=== PATIENT | male | born 1950 | race Caucasian/White ===

== ENCOUNTER 2018-03-19 21:00 | Outpatient (CLI) | payer MEDICARE | END 2018-03-19 21:01 | disposition short-term general hospital (02) | LOC: EMS 21:00 | PROVIDERS: ATTEND Surgery | DX: R09.89 Other specified symptoms and signs involving the circulatory and respiratory systems (principal) | CPT/HCPCS: A0425; A0429 ==

== ENCOUNTER 2022-08-31 03:29 | Outpatient (CLI) | payer MEDICARE | END 2022-08-31 23:59 | disposition short-term general hospital (02) | LOC: EMS 03:29 | DX: I49.9 Cardiac arrhythmia, unspecified (principal); Z95.810 Presence of automatic (implantable) cardiac defibrillator | CPT/HCPCS: A0425; A0429 ==

== ENCOUNTER 2022-10-28 17:52 | Outpatient (CLI) | payer MEDICARE | END 2022-10-28 17:53 | disposition short-term general hospital (02) | LOC: EMS 17:52 | DX: R00.0 Tachycardia, unspecified (principal); Z95.810 Presence of automatic (implantable) cardiac defibrillator | CPT/HCPCS: A0425; A0427 ==

== ENCOUNTER 2022-12-02 18:24 | Outpatient (CLI) | payer MEDICARE | END 2022-12-02 18:25 | disposition short-term general hospital (02) | LOC: EMS 18:24 | DX: I47.20 Ventricular tachycardia, unspecified (principal) | CPT/HCPCS: A0425; A0427 ==

== ENCOUNTER 2022-12-09 11:07 | Outpatient (CLI) | payer MEDICARE | END 2022-12-09 23:59 | disposition short-term general hospital (02) | LOC: EMS 11:07 | DX: R00.2 Palpitations (principal); R53.81 Other malaise | CPT/HCPCS: A0425; A0429; A0888 ==

== ENCOUNTER 2023-01-15 22:40 | Outpatient (CLI) | payer MEDICARE | END 2023-01-15 23:59 | disposition short-term general hospital (02) | LOC: EMS 22:40 | DX: I47.20 Ventricular tachycardia, unspecified (principal) | CPT/HCPCS: A0425; A0427 ==

== ENCOUNTER 2023-01-23 01:26 | Outpatient (CLI) | payer MEDICARE | END 2023-01-23 23:59 | disposition short-term general hospital (02) | LOC: EMS 01:26 | DX: I47.20 Ventricular tachycardia, unspecified (principal); Z95.810 Presence of automatic (implantable) cardiac defibrillator | CPT/HCPCS: A0425; A0429; A0888 ==

== ENCOUNTER 2023-01-26 17:29 | Outpatient (CLI) | payer MEDICARE | END 2023-01-26 17:30 | disposition short-term general hospital (02) | LOC: EMS 17:29 | DX: R00.2 Palpitations (principal); Z95.810 Presence of automatic (implantable) cardiac defibrillator | CPT/HCPCS: A0425; A0429 ==

== ENCOUNTER 2023-02-20 17:09 | Outpatient (CLI) | payer MEDICARE | END 2023-02-20 23:59 | disposition short-term general hospital (02) | LOC: EMS 17:09 | DX: I49.9 Cardiac arrhythmia, unspecified (principal); R53.1 Weakness | CPT/HCPCS: A0425; A0427 ==

== ENCOUNTER 2023-03-13 20:08 | Outpatient (CLI) | payer MEDICARE | END 2023-03-13 23:59 | disposition EMS.NT | LOC: EMS 20:08 | DX: R00.0 Tachycardia, unspecified (principal) ==

== ENCOUNTER 2023-03-16 14:20 | Outpatient (CLI) | payer MEDICARE | END 2023-03-16 14:21 | disposition short-term general hospital (02) | LOC: EMS 14:20 | DX: I47.20 Ventricular tachycardia, unspecified (principal); R42 Dizziness and giddiness; Z95.0 Presence of cardiac pacemaker | CPT/HCPCS: A0425; A0427 ==

== ENCOUNTER 2023-05-09 22:24 | Outpatient (CLI) | payer MEDICARE | END 2023-05-09 23:59 | disposition short-term general hospital (02) | LOC: EMS 22:24 | DX: R07.89 Other chest pain (principal) | CPT/HCPCS: A0425; A0427; A0888 ==

== ENCOUNTER 2023-08-21 09:45 | Outpatient (CLI) | payer MEDICARE | END 2023-08-21 23:59 | disposition short-term general hospital (02) | LOC: EMS 09:45 | DX: R00.2 Palpitations (principal); K30 Functional dyspepsia; K50.90 Crohn's disease, unspecified, without complications; I10 Essential (primary) hypertension; I25.2 Old myocardial infarction; Z95.810 Presence of automatic (implantable) cardiac defibrillator | CPT/HCPCS: A0425; A0427 ==

== ENCOUNTER 2023-09-01 14:30 | Outpatient (CLI) | payer MEDICARE | END 2023-09-01 23:59 | disposition short-term general hospital (02) | LOC: EMS 14:30 | DX: R53.1 Weakness (principal); R53.83 Other fatigue | CPT/HCPCS: A0425; A0429 ==

== ENCOUNTER 2023-10-04 16:45 | Outpatient (CLI) | payer MEDICARE | END 2023-10-04 23:59 | disposition EMS.NT | LOC: EMS 16:45 | DX: R42 Dizziness and giddiness (principal) ==